=== PATIENT | male | born 1995 | race Caucasian/White ===

== ENCOUNTER 2023-09-30 15:09 | Emergency (ER) | payer OTHER ==
[~2023-09-30] VITALS: Ht 170.2 cm; Wt 80.1 kg
[2023-09-30 16:32] VITALS: BP 124/73
== END 2023-09-30 16:35 | disposition home or self-care (01) ==
LOC: ED 15:09
DX: K60.2 Anal fissure, unspecified (principal)
CPT/HCPCS: 99283